=== PATIENT | male | born 1980 | race Caucasian/White ===

== ENCOUNTER 2018-04-03 19:52 | Emergency (ER) | payer MEDICAID ==
[2018-04-03] MEDS: Haloperidol Lactate 5 MG/ML SDV IM ONE (20:16)
[2018-04-03] MEDS: LORazepam 2 MG/ML SDV IM ONE (20:23)
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
== END 2018-04-04 07:52 ==
LOC: JP.ED 19:52
DX: F22 Delusional disorders (principal); F17.210 Nicotine dependence, cigarettes, uncomplicated; Z88.8 Allergy status to other drugs, medicaments and biological substances
CPT/HCPCS: 36415; 80053; 80305; 81001; 85025; 96372; 99285; G0480; J2060

== ENCOUNTER 2020-11-22 02:35 | Emergency (ER) | payer MEDICAID ==
--- NOTE | 2020-11-22 03:33 | EDM.PDOCBH ---
<Arthur Mcdonald G - Last Filed: 11/22/20 04:12> ED HPI GENERAL MEDICAL PROBLEM - General Chief Complaint: Drug or Alcohol Abuse Stated Complaint: EVAL VIA [facility] Time Seen by Provider: 11/22/20 03:15 Source of Information: Reports: Patient, RN. Denies: Old Records History Limitations: Reports: Other (no old records) - History of Present Illness INITIAL COMMENTS - FREE TEXT/NARRATIVE: 40 yo male was picked up by police walking [place] [id number]. When they picked him up he stated he wanted to go to detox so he was brought here. Is from [place], [place]. He got out of nursing home about 12 hrs ago here in [facility] and drank vodka since then. He also admits to me that he has never had alcohol withdrawal symptoms in his life and that he wants to go to [place] because he is homeless. He was in nursing home for 62 days before getting out of nursing home 12 hrs ago. Onset: Today Onset Date: 11/22/20 Duration: Hour(s): Location: Reports: Generalized Quality: Reports: Other (denies pain) Severity: Mild Improves with: Reports: None Worsens with: Reports: Other (drinking more) Context: Reports: Other (See HPI) Associated Symptoms: Reports: No Other Symptoms Treatments RECREATION PROGRAM SPECIALIST: Reports: Other (see below) (none) - Related Data Allergies Allergy/AdvReac Type Severity Reaction Status Date / Time No Known Allergies Allergy Verified 11/22/20 03:05 Home Meds: Home Meds NK [No Known Home Meds] 04/03/18 [History] Past Medical History Musculoskeletal History: Reports: Fracture, Other (See Below) Other Musculoskeletal History: bilateral hand fracture Psychiatric History: Reports: ADHD, PTSD - Infectious Disease History Infectious Disease History: Reports: Chicken Pox - Past Surgical History Head Surgeries/Procedures: Reports: None Musculoskeletal Surgical History: Reports: Other (See Below) Other Musculoskeletal Surgeries/Procedures:: right surgical repair of wrist. left surgical repair hand, metal orthopedic implants placed Social & Family History - Tobacco Use Tobacco Use Status *Q: Never Tobacco User - Caffeine Use Caffeine Use: Reports: None - Recreational Drug Use Recreational Drug Use: No ED ROS GENERAL - Review of Systems Review Of Systems: See Below Constitutional: Reports: No Symptoms HEENT: Reports: No Symptoms Respiratory: Reports: No Symptoms Cardiovascular: Reports: No Symptoms GI/Abdominal: Reports: No Symptoms : Reports: No Symptoms Musculoskeletal: Reports: No Symptoms Skin: Reports: No Symptoms Neurological: Reports: No Symptoms Psychiatric: Reports: Other ED EXAM, BEHAVIORAL HEALTH - Physical Exam Exam: See Below Exam Limited By: No Limitations General Appearance: Alert, WD/WN, No Apparent Distress, Other (Still wearing his orange issued nursing home clothing. ) Eye Exam: Bilateral Eye: Normal Inspection Ears: Normal External Exam, Normal Canal, Hearing Grossly Normal Nose: Normal Inspection, No Blood Throat/Mouth: Normal Inspection, Normal Lips, Normal Oropharynx, Normal Voice, No Airway Compromise Head: Atraumatic, Normocephalic Neck: Normal Inspection Respiratory/Chest: No Respiratory Distress, Lungs Clear, Normal Breath Sounds, No Accessory Muscle Use Cardiovascular: Regular Rate, Rhythm, No Edema GI/Abdominal: Normal Bowel Sounds, Soft, Non-Tender, No Distention Back Exam: Normal Inspection. No: CVA Tenderness (R), CVA Tenderness (L) Extremities: Normal Inspection, Normal Range of Motion, Non-Tender, No Pedal Edema Neurological: Alert, Normal Mood/Affect, CN II-XII Intact, Normal Cognition, No Motor/Sensory Deficits, Oriented x 3 Psychiatric: Alert, Normal Affect, Normal Cognition, Normal Mood, Oriented, Other (somewhat evasive in his answers initially, didn't intend to let on his real motive for wanting to go to [place]. ) Skin Exam: Warm, Dry, Intact, Normal color, No rash Departure - Departure Disposition: DC/Tfer to Other Condition: Fair Clinical Impression: Mild dehydration, Homelessness Alcohol intoxication Qualifiers: Complication of substance-induced condition: with unspecified complication Qualified Code(s): F10.929 - Alcohol use, unspecified with intoxication, unspecified - Discharge Information *PRESCRIPTION DRUG MONITORING PROGRAM REVIEWED*: Not Applicable *COPY OF PRESCRIPTION DRUG MONITORING REPORT IN PATIENT HALIMA: Not Applicable Instructions: Alcohol Intoxication Referrals: PCP,None [Primary Care Provider] - Forms: ED Department Discharge Sepsis Event Note (ED) - Evaluation Sepsis Screening Result: No Definite Risk <OfficerDerian - Last Filed: 11/22/20 11:12> COURSE, BEHAVIORAL HEALTH COMP - Course Vital Signs: Last Vital Signs Temp 97.9 F 11/22/20 02:57 Pulse 75 03/31/21 02:57 Resp 16 11/22/20 02:57 BP 108/74 11/22/20 02:57 Pulse Ox 97 11/22/20 02:57 Orders, Labs, Meds: Laboratory Tests 11/22/20 11/22/20 11/22/20 Range/Units 03:21 03:21 03:36 WBC 9.9 (4.5-11.0) K/uL RBC 4.80 (4.30-5.90) M/uL Hgb 13.1 (12.0-15.0) g/dL Hct 40.3 (40.0-54.0) % MCV 84 (80-98) fL MCH 27 (27-31) pg MCHC 33 (32-36) % Plt Count 227 (150-400) K/uL Sodium (140-148) mmol/L Potassium (3.6-5.2) mmol/L Chloride (100-108) mmol/L Carbon Dioxide (21-32) mmol/L Anion Gap (5.0-14.0) mmol/L BUN (7-18) mg/dL Creatinine (0.8-1.3) mg/dL Est Cr Clr Drug Dosing mL/min Estimated GFR (MDRD) (>60) Glucose (74-106) mg/dL Calcium (8.5-10.1) mg/dL Total Bilirubin (0.2-1.0) mg/dL AST (15-37) U/L ALT (12-78) U/L Alkaline Phosphatase (46-116) U/L Total Protein (6.4-8.2) g/dL Albumin (3.4-5.0) g/dL Globulin (2.3-3.5) g/dL Albumin/Globulin Ratio (1.2-2.2) Urine Color Yellow (YELLOW) Urine Appearance Clear (CLEAR) Urine pH 6.5 (5.0-8.0) Ur Specific [place] >= 1.030 (1.008-1.030) Urine Protein Negative (NEGATIVE) mg/dL Urine Glucose (UA) Negative (NEGATIVE) mg/dL Urine Ketones Trace H (NEGATIVE) mg/dL Urine Occult Blood Negative (NEGATIVE) Urine Nitrite Negative (NEGATIVE) Urine Bilirubin Negative (NEGATIVE) Urine Urobilinogen 0.2 (0.2-1.0) EU/dL Ur Leukocyte Esterase Negative (NEGATIVE) Urine RBC Not seen (0-5) Urine WBC Not seen (0-5) Ur Epithelial Cells Not seen Amorphous Sediment Not seen Urine Bacteria Not seen Urine Mucus Moderate Urine Other Urine Opiates Screen Negative (NEGATIVE) Ur Oxycodone Screen Negative (NEGATIVE) Urine Methadone Screen Negative (NEGATIVE) Ur Propoxyphene Screen Negative (NEGATIVE) Ur Barbiturates Screen Negative (NEGATIVE) Ur Tricyclics Screen Negative (NEGATIVE) Ur Phencyclidine Scrn Negative (NEGATIVE) Ur Amphetamine Screen Negative (NEGATIVE) U Methamphetamines Scrn Negative (NEGATIVE) Urine MDMA Screen Negative (NEGATIVE) U Benzodiazepines Scrn Negative (NEGATIVE) U Cocaine Metab Screen Negative (NEGATIVE) U Marijuana (THC) Screen Negative (NEGATIVE) Ethyl Alcohol mg/dL 11/22/20 11/22/20 Range/Units 03:36 03:36 WBC (4.5-11.0) K/uL RBC (4.30-5.90) M/uL Hgb (12.0-15.0) g/dL Hct (40.0-54.0) % MCV (80-98) fL MCH (27-31) pg MCHC (32-36) % Plt Count (150-400) K/uL Sodium 150 H (140-148) mmol/L Potassium 3.6 (3.6-5.2) mmol/L Chloride 106 (100-108) mmol/L Carbon Dioxide 30 (21-32) mmol/L Anion Gap 17.6 H (5.0-14.0) mmol/L BUN 30 H D (7-18) mg/dL Creatinine 1.0 (0.8-1.3) mg/dL Est Cr Clr Drug Dosing 95.82 mL/min Estimated GFR (MDRD) > 60 (>60) Glucose 100 (74-106) mg/dL Calcium 8.5 (8.5-10.1) mg/dL Total Bilirubin 0.4 (0.2-1.0) mg/dL AST 19 (15-37) U/L ALT 18 (12-78) U/L Alkaline Phosphatase 49 (46-116) U/L Total Protein 6.6 (6.4-8.2) g/dL Albumin 3.9 (3.4-5.0) g/dL Globulin 2.7 (2.3-3.5) g/dL Albumin/Globulin Ratio 1.4 (1.2-2.2) Urine Color (YELLOW) Urine Appearance (CLEAR) Urine pH (5.0-8.0) Ur Specific [place] (1.008-1.030) Urine Protein (NEGATIVE) mg/dL Urine Glucose (UA) (NEGATIVE) mg/dL Urine Ketones (NEGATIVE) mg/dL Urine Occult Blood (NEGATIVE) Urine Nitrite (NEGATIVE) Urine Bilirubin (NEGATIVE) Urine Urobilinogen (0.2-1.0) EU/dL Ur Leukocyte Esterase (NEGATIVE) Urine RBC (0-5) Urine WBC (0-5) Ur Epithelial Cells Amorphous Sediment Urine Bacteria Urine Mucus Urine Other Urine Opiates Screen (NEGATIVE) Ur Oxycodone Screen (NEGATIVE) Urine Methadone Screen (NEGATIVE) Ur Propoxyphene Screen (NEGATIVE) Ur Barbiturates Screen (NEGATIVE) Ur Tricyclics Screen (NEGATIVE) Ur Phencyclidine Scrn (NEGATIVE) Ur Amphetamine Screen (NEGATIVE) U Methamphetamines Scrn (NEGATIVE) Urine MDMA Screen (NEGATIVE) U Benzodiazepines Scrn (NEGATIVE) U Cocaine Metab Screen (NEGATIVE) U Marijuana (THC) Screen (NEGATIVE) Ethyl Alcohol 208 mg/dL Departure - Departure Time of Disposition: 11:12 Sepsis Event Note (ED) - Focused Exam Vital Signs: Vital Signs Temp Pulse Resp BP Pulse Ox 11/22/20 02:57 97.9 F 75 16 108/74 97 - Assessment/Plan Plan: Took over care from Dr. Santiago awaiting placement Assessment Acuity = acute Site and laterality = homelessness, alcohol intoxication Etiology = unknown Manifestations = none Location of injury = Home Lab values = CBC, CMP, urinalysis, urine drug screen all within normal limits alcohol is at 208 Plan Able to find placement for him at the [facility], recommend refrain from alcohol follow-up primary care as needed This note was dictated using [email or web address] voice recognition software please call with any questions on syntax or grammar.
== END 2020-11-22 11:47 | disposition other institution (70) ==
LOC: JP.ED 02:35
DX: F10.129 Alcohol abuse with intoxication, unspecified (principal); E86.0 Dehydration; Z59.0 Homelessness; Y90.8 Blood alcohol level of 240 mg/100 ml or more
CPT/HCPCS: 36415; 80053; 80305-QW; 80307; 81001; 85027; 99283; 99285

== ENCOUNTER 2023-12-03 21:33 | Emergency (ER) | payer MEDICAID | END 2023-12-04 01:23 | disposition home or self-care (01) | LOC: JP.ED 21:33 | DX: F10.129 Alcohol abuse with intoxication, unspecified (principal); F17.210 Nicotine dependence, cigarettes, uncomplicated; Y90.9 Presence of alcohol in blood, level not specified | CPT/HCPCS: 99283; 99285 ==

== ENCOUNTER 2023-12-04 10:07 | Emergency (ER) | payer MEDICAID ==
[2023-12-04 11:20] LABS: BASOPHILS ABSOLUTE AUTO 0.05 K/uL (0.00-0.10); BASOPHILS PERCENT AUTO 0.9 % (0.1-1.3); EOSINOPHILS ABSOLUTE AUTO 0.36 K/uL (0.00-0.40); EOSINOPHILS PERCENT AUTO 6.8 % (0.0-5.4); HEMATOCRIT 41.9 % (38.4-49.7); HEMOGLOBIN 13.3 g/dL (12.9-16.9); IMMATURE GRAN PERCENT AUTO 0.4 % (0.0-0.7); LYMPHOCYTES ABSOLUTE AUTO 1.14 K/uL (0.8-3.3); LYMPHOCYTES PERCENT AUTO 21.5 % (11.4-47.7); MEAN CORPUSCULAR HEMOGLOBIN 26.3 pg (31.6-35.5); MEAN CORPUSCULAR HGB CONC 31.7 g/dL (31.6-35.5); MONOCYTES ABSOLUTE AUTO 0.66 K/uL (0.20-0.90); MONOCYTES PERCENT AUTO 12.5 % (3.3-12.6); NEUTROPHILS ABSOLUTE AUTO 3.07 K/uL (1.0-7.6); NEUTROPHILS PERCENT AUTO 57.9 % (40.0-78.1); PLATELET COUNT,PLT 239 K/uL (130-375); RED BLOOD CELL COUNT 5.05 M/uL (4.14-5.76); WHITE BLOOD CELL COUNT,WBC 5.3 K/uL (3.2-11.0)
[2023-12-04 11:21] LABS: IMMATURE GRAN ABSOLUTE AUTO 0.02 K/uL (0.00-0.23)
[2023-12-04 11:40] LABS: A/G RATIO 0.8 (1.2-2.2); ALANINE AMINOTRANSFERASE,ALT 18 U/L (12-78); ALBUMIN 3.1 g/dL (3.4-5.0); ALKALINE PHOSPHATASE 83 U/L (46-116); ANION GAP 8.4 mmol/L (5.0-14.0); ASPARTATE AMNIOTRANSFERASE,AST 22 U/L (15-37); BILIRUBIN TOTAL 0.3 mg/dL (0.2-1.0); BLOOD UREA NITROGEN,BUN 18 mg/dL (7-18); CALCIUM 8.5 mg/dL (8.5-10.1); CARBON DIOXIDE,CO2 30 mmol/L (21-32); CHLORIDE,CL 103 mmol/L (100-108); CREATININE 0.9 mg/dL (0.8-1.3); EST CRCL DRUG DOSING (CG) 109.72 mL/min; ESTIMATED GFR 107 mL/min (>60); GLUCOSE RANDOM 91 mg/dL (74-106); POTASSIUM,K 4.2 mmol/L (3.6-5.2); SODIUM,NA 141 mmol/L (140-148)
[2023-12-04 11:53] LABS: AMPHETAMINES SCREEN, URINE PRESUMPTIVE POSITIVE (NEGATIVE); METHAMPHETAMINES SCREEN, URINE PRESUMPTIVE POSITIVE (NEGATIVE)
[2023-12-04 11:54] LABS: BARBITURATE SCREEN,URINE NEGATIVE (NEGATIVE); BENZODIAZEPINES SCREEN,URINE NEGATIVE (NEGATIVE)
[2023-12-04 11:55] LABS: METHADONE SCREEN, URINE NEGATIVE (NEGATIVE); OXYCODONE SCREEN,URINE NEGATIVE (NEGATIVE); PROPOXYPHENE SCREEN,URINE NEGATIVE (NEGATIVE); THC SCREEN,URINE 50 NG/ML PRESUMPTIVE POSITIVE (NEGATIVE)
[2023-12-04 12:07] LABS: CORONAVIRUS COVID-19 NAA NEGATIVE (NEGATIVE); INFLUENZA A NAA NEGATIVE (NEGATIVE); INFLUENZA B NAA NEGATIVE (NEGATIVE); RESPIRATORY SYNCYTIAL VIR NAA NEGATIVE (NEGATIVE)
== END 2023-12-04 16:32 | disposition other institution (70) ==
LOC: JP.ED 10:07
DX: F10.10 Alcohol abuse, uncomplicated (principal); F15.20 Other stimulant dependence, uncomplicated; F17.210 Nicotine dependence, cigarettes, uncomplicated; Y90.9 Presence of alcohol in blood, level not specified
CPT/HCPCS: 0241U; 36415; 80053; 80305-QW; 80307; 85025; 99284; 99285